=== PATIENT | female | born 1955 | race Two or more races ===

== ENCOUNTER 2024-03-11 12:11 | Emergency (ER) | payer OTHER ==
[~2024-03-11] VITALS: Ht 162.6 cm; Wt 62.9 kg
[2024-03-11] MEDS: SODIUM CHLORIDE 0.9% 1,000 ML IV ONE ×2 (12:38→13:53)
[2024-03-11 13:43] LABS: Urine Bacteria None Seen /hpf (None Seen)
[2024-03-11 13:47] VITALS: BP 147/80; PULSE 60; RESP 18; TEMP 98.8; O2SAT 99
[2024-03-11 13:50] LABS: Chloride 109 mmol/L (98-107); Potassium 4.3 mmol/L (3.5-5.1); Sodium 144 mmol/L (136-145)
[2024-03-11 13:51] LABS: Anion Gap 7 (5-15); Carbon Dioxide 28 mmol/L (20-31)
[2024-03-11 13:52] LABS: Calcium 9.6 mg/dL (8.7-10.4)
[2024-03-11] MEDS: MECLIZINE HCL 25 MG TAB PO ONE (13:55)
[2024-03-11 13:56] LABS: BUN/Creatinine Ratio 14.5 (10.0-20.0); Blood Urea Nitrogen 16 mg/dL (9-23); Glucose 104 mg/dL (74-106)
[2024-03-11 13:57] LABS: Basophils # (auto) 0 10 ^3/uL (0-0.2); Eosinophils # (auto) 0.2 10 ^3/uL (0-0.8); Eosinophils % (auto) 3.5 % (0.0-7.0); Hematocrit 38.1 % (36.0-46.0); Hemoglobin 13.2 g/dL (12.2-16.2); Lymphocytes # (auto) 1.2 10 ^3/uL (0.4-5.4); Lymphocytes % (auto) 24.7 % (10.0-50.0); Mean Corpuscular Hgb Conc. 34.7 g/dL (32.0-36.0); Mean Corpuscular Volume 95.2 fL (80.0-100.0); Monocytes # (auto) 0.4 10 ^3/uL (0-1.3); Neutrophils % (auto) 62.8 % (37.0-80.0); Nucleated Red Blood Cells % 0.1 %; Platelet Count (auto) 173 10^3/uL (140-450); Red Cell Distribution Width 13.6 % (11.8-14.3); White Blood Cell 4.7 10^3/uL (4.4-10.8)
[2024-03-11 14:04] LABS: Urine Blood Negative /uL (Negative); Urine Clarity Clear (Clear); Urine Color Yellow (Yellow); Urine Protein, UAD Negative (Negative); Urine Specific Gravity 1.019 (1.001-1.035); Urine Urobilinogen Normal (Negative); Urine WBC <1 /hpf (0 - 5); Urine pH 6.5 (5.0-9.0)
== END 2024-03-11 17:24 | disposition left against medical advice (07) ==
LOC: ER 12:11
DX: G90.9 Disorder of the autonomic nervous system, unspecified (principal); R51.9 Headache, unspecified; R42 Dizziness and giddiness; R26.2 Difficulty in walking, not elsewhere classified
CPT/HCPCS: 36415; 70450; 80048; 81001; 84484; 85025; 93005; 96360; 99284; J7030; J8597